=== PATIENT | female | born 1990 | race Two or more races ===

== ENCOUNTER 2025-03-17 06:59 | Inpatient (IN) | payer OTHER ==
[2025-03-17] MEDS ORDERED: Nalbuphine 10 MG/1 ML Vial IVPUSH PRN (07:03)
[2025-03-17] MEDS ORDERED: Ondansetron 4 MG/2 ML SDV IVPUSH PRN (07:03)
[2025-03-17] MEDS ORDERED: Sodium Chloride 0.9% 10 ML Syringe FLUSH PRN (07:03)
[2025-03-17] MEDS ORDERED: Oxytocin/0.9 % Sodium Chloride 30 UNIT/500 ML BAG IV SCH (07:15)
[2025-03-17 07:35] LABS: BASOPHILS ABSOLUTE AUTO 0.0 K/mm3 (0.0-0.2); BASOPHILS PERCENT AUTO 0.4 % (0.0-1.0); EOSINOPHILS ABSOLUTE AUTO 0.1 K/mm3 (0.0-0.4); EOSINOPHILS PERCENT AUTO 0.8 % (0.0-6.0); IMMATURE GRAN ABSOLUTE AUTO 0.04 K/mm3 (0.00-0.05); IMMATURE GRAN PERCENT AUTO 0.6 % (0.0-0.4); LYMPHOCYTES ABSOLUTE AUTO 1.8 K/mm3 (1.0-4.8); LYMPHOCYTES PERCENT AUTO 25.5 % (24.0-44.0); MEAN PLATELET VOLUME 11.4 fl (9.4-12.3); MONOCYTES ABSOLUTE AUTO 0.8 K/mm3 (0.0-0.8); MONOCYTES PERCENT AUTO 11.3 % (0.0-8.0); NEUTROPHILS ABSOLUTE AUTO 4.4 K/mm3 (1.8-7.7); NEUTROPHILS PERCENT AUTO 61.4 % (41.0-71.0); NRBC ABSOLUTE 0.00 (0.00-0.02); NRBC PERCENT 0.0 % (0.0-0.2); PLATELET COUNT,PLT 178 K/mm3 (150-400); RED BLOOD CELL COUNT 4.09 M/mm3 (4.10-5.30); WHITE BLOOD CELL COUNT,WBC 7.19 K/mm3 (3.9-11.3)
[2025-03-17] MEDS: Oxytocin/0.9 % Sodium Chloride 30 UNIT/500 ML BAG IV SCH (07:47)
[2025-03-17] MEDS: Lactated Ringers 1,000 ML IV SCH (07:47)
[2025-03-17 07:55] LABS: A/G RATIO 0.7 (1-2); ALANINE AMINOTRANSFERASE,ALT 20 U/L (14-59); ASPARTATE AMNIOTRANSFERASE,AST 17 U/L (15-37); BILIRUBIN TOTAL 0.4 mg/dL (0.2-1.0); BLOOD UREA NITROGEN,BUN 8 mg/dL (7-18); CARBON DIOXIDE,CO2 20 mEq/L (21-32); CHLORIDE,CL 101 mEq/L (98-107); CREATININE 0.6 mg/dL (0.55-1.02); ESTIMATED GFR 119 mL/min (>60); GLUCOSE RANDOM 110 mg/dL (70-99); POTASSIUM,K 3.7 mEq/L (3.5-5.1); PROTEIN TOTAL,TP 6.8 g/dl (6.4-8.2); SODIUM,NA 133 mEq/L (136-145)
[2025-03-17] MEDS ORDERED: ePHEDrine 50 MG/ML SDV IVPUSH PRN (08:49)
[2025-03-17] MEDS ORDERED: diphenhydrAMINE 50 MG/ML SDV IVPUSH PRN (08:49)
[2025-03-17 09:21] LABS: APPEARANCE,URINE CLEAR (Clear); GLUCOSE,URINE NEGATIVE (Negative); OCCULT BLOOD,URINE NEGATIVE (Negative)
[2025-03-17] MEDS: Bupivacaine/fentaNYL/NS 100 ML Bag EPIDUR PRN (11:16)
[2025-03-17] MEDS: Benzocaine/Menthol 20%-0.5% Spray 78 GM Cannister TOP PRN (14:51)
[2025-03-17] MEDS: Witch Hazel Medicated Pads 40/Jar TOP PRN (14:51)
[2025-03-18] MEDS: Sodium Chloride 0.9% 10 ML Syringe FLUSH SCH (08:48)
== END 2025-03-19 17:00 | disposition home or self-care (01) | DRG 807 ==
LOC: JD.OB 06:59 → UNDOADMOB 06:59 → INTOOBSV 13:24 → OBSVTOIN 13:24 → JD.OB 13:24 → OBSVTOIN 13:55
PROVIDERS: ADMIT Obstetrics & Gynecology; ATTEND Obstetrics & Gynecology
PROC: 10E0XZZ Delivery of Products of Conception, External Approach (ICD-10-PCS; principal; 2025-03-17)
PROC: 4A1HXCZ Monitoring of Products of Conception, Cardiac Rate, External Approach (ICD-10-PCS; 2025-03-17)
PROC: 10907ZC Drainage of Amniotic Fluid, Therapeutic from Products of Conception, Via Natural or Artificial Opening (ICD-10-PCS; 2025-03-17)
PROC: 3E033VJ Introduction of Other Hormone into Peripheral Vein, Percutaneous Approach (ICD-10-PCS; 2025-03-17)
PROC: 0HQ9XZZ Repair Perineum Skin, External Approach (ICD-10-PCS; 2025-03-17)
PROC: 0UQMXZZ Repair Vulva, External Approach (ICD-10-PCS; 2025-03-17)
PROC: 3E0R3BZ Introduction of Anesthetic Agent into Spinal Canal, Percutaneous Approach (ICD-10-PCS; 2025-03-17)
PROC: 00HU33Z Insertion of Infusion Device into Spinal Canal, Percutaneous Approach (ICD-10-PCS; 2025-03-17)
DX: O99.214 Obesity complicating childbirth (principal); Z37.0 Single live birth; O34.13 Maternal care for benign tumor of corpus uteri, third trimester; D25.9 Leiomyoma of uterus, unspecified; Z3A.39 39 weeks gestation of pregnancy; O76 Abnormality in fetal heart rate and rhythm complicating labor and delivery; O70.0 First degree perineal laceration during delivery; O71.82 Other specified trauma to perineum and vulva
CPT/HCPCS: 36415; 59025; 59409; 80053; 81003; 85025; 86592; 86850; 86900; 86901; A9270-GY; J3490; J7120; J7999

== ENCOUNTER 2025-06-01 10:05 | Day surgery (SDC) | payer OTHER ==
[~2025-06-01 10:05] MED LIST: Midazolam 1 MG/ML 2 ML SDV ONE; Sodium Chloride 0.9% 10 ML Syringe FLUSH PRN; Sodium Chloride 0.9% 10 ML Syringe FLUSH SCH; fentaNYL 250 MCG/5 ML SDV ONE
[2025-06-01] MEDS ORDERED: dexmedeTOMIDine HCl 200 MCG/2 ML SDV ONE (10:13)
[2025-06-01] MEDS ORDERED: Ondansetron 4 MG/2 ML SDV ONE (10:16)
[2025-06-01] MEDS ORDERED: Dexamethasone 4 MG/ML 5 ML MDV ONE (10:16)
[2025-06-01] MEDS: Lactated Ringers 1,000 ML IV SCH (10:35)
[2025-06-01] MEDS ORDERED: Ketorolac 30 MG/ML SDV ONE (10:50)
[2025-06-01] MEDS ORDERED: propofoL 1,000 MG/100 ML 100 ML ONE (10:56)
[2025-06-01] MEDS ORDERED: droPERidol 2.5 MG/ML SDV IV PRN (11:36)
[2025-06-01] MEDS: EPINEPHrine 1 MG/ML SDV ONE (11:55)
[2025-06-01] MEDS: fentaNYL 100 MCG/2 ML SDV IVPUSH PRN (12:27)
== END 2025-06-01 14:25 | disposition home or self-care (01) ==
LOC: JD.SDS 10:05
PROVIDERS: ATTEND Surgery
DX: K80.10 Calculus of gallbladder with chronic cholecystitis without obstruction (principal); K21.9 Gastro-esophageal reflux disease without esophagitis; E66.9 Obesity, unspecified; Z68.28 Body mass index [BMI] 28.0-28.9, adult; Z91.041 Radiographic dye allergy status; Z79.899 Other long term (current) drug therapy
CPT/HCPCS: 47562; 81025; A9270; J0169; J0665; J0690; J1100; J1885; J2003; J2250; J2405; J2704; J3010; J7120; 00790; J1171; J3490